=== PATIENT | female | born 1935 | race Caucasian/White ===

== ENCOUNTER 2017-08-10 00:39 | Day surgery (SDC) | payer BC, MEDICARE ==
[~2017-08-10] VITALS: Ht 154.9 cm; Wt 77.6 kg
[~2017-08-10 00:39] MED LIST: ACET500T68 PO; ALB17R INH; ALBU8.5H IH; ATOR10TA65 PO; ATOR20TA22 PO; BUPR1PAT9 TD; CHOL10005 PO; CHOL400C10 PO; FLAX100042 PO; FLUT1DIS29 IH; HYDR-2966 PO; LOSA50TA72 PO; MAGN250T34 PO; MAX75 PO; NAB500 PO; OMEG-36 PO; PER PO; POTA2.5T7 PO; VITAMINS
[2017-08-10] MEDS ORDERED: OPHTHALMIC PROCEDURE 1 OU PRN (10:30)
[2017-08-10] MEDS ORDERED: OPHTHALMIC PROCEDURE 2 OU PRN (10:30)
[2017-08-10] MEDS ORDERED: LIDOCAINE/SOD BICARB 8.4% SYR ID ONE (12:00)
[2017-08-10] MEDS ORDERED: NORMOSOL R SOLN(*) 1000 ML BAG 1,000 ML IV PRN (12:00)
[2017-08-10] MEDS ORDERED: MIDAZOLAM 2 MG/2 ML VIAL IVP ONE (12:30)
[2017-08-10 12:34] VITALS: BP 179/125
[2017-08-10] MEDS: OPHTHALMIC PROCEDURE 2 OU PRN ×2 (12:43→12:54)
[2017-08-10 14:47] VITALS: BP 170/92
--- NOTE | 2017-08-10 18:07 | FOSTER LEFT EYE CATARACT ---
EVENT DATE: August 10, 2017 SURGEON: Gilberto Arroyo MD ANESTHESIOLOGIST: Eulogio Zamora MD ANESTHESIA: MAC PREOPERATIVE DIAGNOSIS Cataract, left eye. POSTOPERATIVE DIAGNOSIS Cataract, left eye. PROCEDURE Phacoemulsification of cataractous lens with implantation of an intraocular lens , left eye. DESCRIPTION OF PROCEDURE The risks and benefits and alternatives were carefully discussed with the patient, and preoperative consent was obtained. The patient was brought to the operating room, after receiving topical anesthetic. The patient was prepped and draped using sterile technique in the usual manner. A stab incision was made and the chamber was inflated with preservative-free lidocaine. DuoVisc was injected to inflate the chamber. A 2.2 mm blade was used to enter the anterior chamber. Utrata forceps were used to tear a circular capsulorrhexis. BSS was used to hydrodissect the nucleus. Phaco tip was introduced and the nucleus was chopped into four quadrants. Each quadrant was removed. The I/A tip was used to remove the cortex. The bag was inflated with ProVisc. The intraocular lens was injected into the capsular bag. The I/A tip was used to remove the ProVisc. The wound was found to be watertight. Vigamox, Nevanac and Maxitrol ointment were placed in the patient's eye. The patient's eye was patched and the patient was taken to the recovery room in stable condition. The patient was examined in the recovery room and found to be stable, prior to release from the hospital. SHANA
== END 2017-08-10 15:07 | disposition home or self-care (01) ==
LOC: OR 00:39
PROVIDERS: ATTEND Ophthalmology
DX: H25.811 Combined forms of age-related cataract, right eye (principal); H25.812 Combined forms of age-related cataract, left eye; H43.813 Vitreous degeneration, bilateral
CPT/HCPCS: 66984; V2632

== ENCOUNTER 2017-09-21 01:40 | Day surgery (SDC) | payer BC ==
[~2017-09-21] VITALS: Ht 160 cm; Wt 76.7 kg
[2017-09-21] MEDS ORDERED: OPHTHALMIC PROCEDURE 1 OD PRN (12:20)
[2017-09-21] MEDS ORDERED: OPHTHALMIC PROCEDURE 2 OD PRN ×2 (12:20)
[2017-09-21 13:00] VITALS: BP 161/87
[2017-09-21] MEDS ORDERED: MIDAZOLAM 2 MG/2 ML VIAL IVP ONE (13:00)
[2017-09-21] MEDS ORDERED: NORMOSOL R SOLN(*) 1000 ML BAG 1,000 ML IV PRN (13:00)
[2017-09-21] MEDS ORDERED: LIDOCAINE/SOD BICARB 8.4% SYR ID ONE (13:00)
[2017-09-21] MEDS ORDERED: ALBUTEROL/IPRATROPIUM 3 ML NEB ONE (13:54)
[2017-09-21 15:18] VITALS: BP 154/96
--- NOTE | 2017-09-21 19:17 | FOSTER RIGHT EYE CATARACT ---
EVENT DATE: September 21, 2017 SURGEON: Gilberto Arroyo MD ANESTHESIOLOGIST: None. ANESTHESIA: Topical. PREOPERATIVE DIAGNOSIS Cataract, right eye. POSTOPERATIVE DIAGNOSIS Cataract, right eye. PROCEDURE Phacoemulsification of cataractous lens with implantation of an intraocular lens , right eye. DESCRIPTION OF PROCEDURE The risks and benefits and alternatives were carefully discussed with the patient, and preoperative consent was obtained. The patient was brought to the operating room after receiving topical anesthetic. The patient was prepped and draped using sterile technique in the usual manner. A stab incision was made, and the chamber was inflated with preservative-free lidocaine. DuoVisc was injected to inflate the chamber. A 2.2 mm blade was used to enter the anterior chamber. Utrata forceps were used to tear a circular capsulorrhexis. BSS was used to hydrodissect the nucleus. Phaco tip was introduced, and the nucleus was chopped into four quadrants. Each quadrant was removed. The I/A tip was used to remove the cortex. The bag was inflated with ProVisc. The intraocular lens was injected into the capsular bag. The I/A tip was used to remove the ProVisc. The wound was found to be watertight. Vigamox, Nevanac, and Maxitrol ointment were placed in the patient's eye. The patient's eye was patched, and the patient was taken to the recovery room in stable condition. The patient was examined in the recovery room and found to be stable prior to release from the hospital. SHANA
== END 2017-09-21 15:35 | disposition home or self-care (01) ==
LOC: OR 01:40
PROVIDERS: ATTEND Ophthalmology
DX: H25.11 Age-related nuclear cataract, right eye (principal)
CPT/HCPCS: 66984; 94640; 94667; J7620; V2632

== ENCOUNTER 2018-03-15 14:23 | Emergency (ER) | payer BC ==
--- NOTE | 2018-03-15 14:29 | ER Report ---
History and Physical Time Seen By MD: 14:29 Hx. of Stated Complaint: LEFT NARE EPITAXIS FOR 45 MINUTES. HPI/ROS CHIEF COMPLAINT: Nosebleed HISTORY OF PRESENT ILLNESS: This is a 2-year-old female who presents to the emergency department for a nosebleed. Patient states that over the last several days she's had 2 nosebleeds, this is the 3rd nosebleed today. Patient states that this was been going on for probably 45 minutes. Patient denies taking anticoagulation, no aspirins. Patient is being treated for hypertension takes other jrmc-nmc-[id number] vitamins. Patient denies having a history of any bleeding disorders. Patient denies chest pain or shortness of breath, no headaches, no visual changes. REVIEW OF SYSTEMS: Constitutional: No fever, no chills. Eyes: No discharge. ENT: As above. Cardiovascular: No chest pain, no palpitations. Respiratory: No cough, no shortness of breath. Gastrointestinal: No abdominal pain, no vomiting. Genitourinary: No hematuria. Musculoskeletal: No back pain. Skin: No rashes. Neurological: No headache. Allergies: Coded Allergies: NSAIDS (Non-Steroidal Anti-Inflamma (Verified Allergy, Intermediate, ASTHMA PROBLEMS, 01/27/08) Sulfa (Sulfonamide Antibiotics) (Verified Allergy, Mild, HIVES, 01/27/08) Home Meds Reported Medications Magnesium Oxide (MAGNESIUM) 250 Mg Tablet, 250 MG PO DAILY 08/01/17 [place]-3 Fatty Acids/Fish Oil (OMEGA 3 FISH OIL SOFTGEL) 1 Each Capsule.dr, 1 EACH PO QDAY 08/01/17 Cholecalciferol (Vitamin D3) (VITAMIN D3) 1,000 Unit Tablet, 2000 UNIT PO DAILY, TAB 08/01/17 Acetaminophen (TYLENOL EXTRA STRENGTH) 500 Mg Tablet, 1-2 TAB PO PRN, TAB 08/01/17 Albuterol Sulfate 90 Mcg/Act (PROAIR HFA 90 MCG/ACT) 8.5 Gm Hfa.aer.ad, 2 PUFF IH Q4H PRN for SHORTNESS OF BREATH, INHALER 02/29/16 Losartan Potassium (LOSARTAN POTASSIUM) 50 Mg Tablet, 50 MG PO QDAY 02/29/16 Hydrochlorothiazide (HYDROCHLOROTHIAZIDE) 25 Mg Tablet, 1 TAB PO QDAY, TAB 02/29/16 Atorvastatin Calcium (ATORVASTATIN CALCIUM) 10 Mg Tablet, 1 TAB PO QDAY, TAB 02/29/16 Fluticasone/Salmeterol (ADVAIR 500-50 DISKUS) 1 Each Disk.w.dev, 1 EACH IH BID 02/29/16 Past Medical/Surgical History The patient has a past medical and surgical history of heart murmur, bronchitis, asthma, pneumonia, COPD, right shoulder discomfort, arthritis, cataracts, wears glasses, hard of hearing, deaf in right ear, vertigo, hysterectomy, clubfoot, toe surgery. Hx Smoking: Yes (1 PPD FOR 60 YRS) Smoking Status: Current: Every Day Smoker Hx Substance Use Disorder: No Hx Alcohol Use: Yes Constitutional Vital Sign - Last 24 Hours 03/15/18 03/15/18 14:26 15:33 Temp 98.0 Pulse 120 82 Resp 18 18 B/P (MAP) 201/95 130/83 (99) Pulse Ox 90 95 O2 Delivery Room Air Room Air Physical Exam General Appearance: The patient is alert, has no immediate need for airway protection and no signs of toxicity. Eyes: Pupils equal and round no pallor or injection. ENT, Mouth: Mucous membranes are moist. Actively bleeding from the left nares, several clots with bright red blood. Right naris clear and patent. Respiratory: There are no retractions, lungs are clear to auscultation. Cardiovascular: Regular rate and rhythm. Gastrointestinal: Abdomen is soft and non tender, no masses, bowel sounds normal. Neurological: Alert and oriented 4. Moving all extremities. Following all commands. No focal neuro deficits. Skin: Warm and dry, no rashes. Musculoskeletal: Neck is supple non tender. Extremities are nontender, nonswollen and have full range of motion. DIFFERENTIAL DIAGNOSIS: After history and physical exam differential diagnosis was considered for nosebleed. Medical Decision Making Data Points Result Diagram: 03/15/18 1456 03/15/18 1456 Laboratory Hematology Test 03/15/18 14:56 Red Blood Count 5.25 M/uL (4.17-5.56) Mean Corpuscular Volume 93.3 fL (80.0-96.0) Mean Corpuscular Hemoglobin 33.4 pg (26.0-33.0) Mean Corpuscular Hemoglobin Concent 35.8 g/dL (32.0-36.0) Red Cell Distribution Width 13.6 % (11.5-14.5) Mean Platelet Volume 6.8 fL (7.2-11.1) Neutrophils (%) (Auto) 55.4 % (39.4-72.5) Lymphocytes (%) (Auto) 30.7 % (17.6-49.6) Monocytes (%) (Auto) 10.1 % (4.1-12.4) Eosinophils (%) (Auto) 2.9 % (0.4-6.7) Basophils (%) (Auto) 0.9 % (0.3-1.4) Nucleated RBC Relative Count (auto) 0.1 /100WBC Neutrophils # (Auto) 4.4 K/uL (2.0-7.4) Lymphocytes # (Auto) 2.5 K/uL (1.3-3.6) Monocytes # (Auto) 0.8 K/uL (0.3-1.0) Eosinophils # (Auto) 0.2 K/uL (0.0-0.5) Basophils # (Auto) 0.1 K/uL (0.0-0.1) Nucleated RBC Absolute Count (auto) 0.01 K/uL Sodium Level 132 mmol/L (137-145) Potassium Level 3.8 mmol/L (3.5-5.0) Chloride Level 93 mmol/L (98-107) Carbon Dioxide Level 28 mmol/L (22-31) Blood Urea Nitrogen 16 mg/dl (7-18) Creatinine 0.60 mg/dl (0.52-1.04) Glomerular Filtration Rate Calc > 60.0 Random Glucose 115 mg/dl (75-110) Calcium Level 9.3 mg/dl (8.4-10.2) Chemistry Test 03/15/18 14:56 White Blood Count 8.0 k/uL (4.5-11.0) Red Blood Count 5.25 M/uL (4.17-5.56) Hemoglobin 17.5 g/dL (12.0-16.0) Hematocrit 48.9 % (34.0-47.0) Mean Corpuscular Volume 93.3 fL (80.0-96.0) Mean Corpuscular Hemoglobin 33.4 pg (26.0-33.0) Mean Corpuscular Hemoglobin Concent 35.8 g/dL (32.0-36.0) Red Cell Distribution Width 13.6 % (11.5-14.5) Platelet Count 338 K/uL (150-450) Mean Platelet Volume 6.8 fL (7.2-11.1) Neutrophils (%) (Auto) 55.4 % (39.4-72.5) Lymphocytes (%) (Auto) 30.7 % (17.6-49.6) Monocytes (%) (Auto) 10.1 % (4.1-12.4) Eosinophils (%) (Auto) 2.9 % (0.4-6.7) Basophils (%) (Auto) 0.9 % (0.3-1.4) Nucleated RBC Relative Count (auto) 0.1 /100WBC Neutrophils # (Auto) 4.4 K/uL (2.0-7.4) Lymphocytes # (Auto) 2.5 K/uL (1.3-3.6) Monocytes # (Auto) 0.8 K/uL (0.3-1.0) Eosinophils # (Auto) 0.2 K/uL (0.0-0.5) Basophils # (Auto) 0.1 K/uL (0.0-0.1) Nucleated RBC Absolute Count (auto) 0.01 K/uL Glomerular Filtration Rate Calc > 60.0 Calcium Level 9.3 mg/dl (8.4-10.2) ED Course/Re-evaluation ED Course The patient was admitted to room. History of physical were obtained. Differential diagnoses were considered. A CBC, BMP were obtained. The patient's nosebleed was controlled with Afrin. The patient had no recurrent bleeding during her ER visit. H&H showing 17.5 ,48.9, chemistry unremarkable. I did instruct the patient to apply a small film of Vaseline or bacitracin to the inside of the nostrils, try humidification in her home and avoid bearing down and increased stress that would subsequently cause a nosebleed. The patient expressed understanding and was discharged home. I also instructed the patient t o follow up with Dr. Kerr should these nosebleeds continue. Patient will return to ER for any other concerns or worsening symptoms. Procedure: Epistaxis control. The anterior epistaxis was identified, Afrin spray was used. The patient was treated with vasoconstriction. Following the procedure the patient was re- examined and the bleeding was well controlled. The patient tolerated the pro cedure well. The procedure was performed by myself. Decision to Disposition Date: Mar 15, 2018 Decision to Disposition Time: 15:22 Depart Departure Latest Vital Signs Vital Signs Date Time Temp Pulse Resp B/P (MAP) Pulse Ox O2 Delivery O2 Flow Rate FiO2 03/15/18 15:33 82 18 130/83 (99) 95 Room Air 03/15/18 14:26 98.0 Impression: Primary Impression: Epistaxis Condition: Improved Disposition: HOME OR SELF-CARE Referrals: MARILYN ZAPATA (PCP) KORI KERR JR, MD Patient Instructions: Nosebleed (ED) Additional Instructions: If the nosebleeds are a recurrent problem, I recommend following up with Dr. Amy de la torre. Nose and throat specialist. I also recommend trying a barrier in the nostril such as bacitracin or Vaseline. Try humidification at home. Drink plenty of water. Get plenty of rest. Return to the emergency department for any other concerns or worsening symptoms. LUCERO PERRY-BC Mar 15, 2018 14:29
[2018-03-15] MEDS ORDERED: OXYMETAZOLINE SPRAY 15 ML BTL ENA SCH (14:30)
[2018-03-15 15:07] LABS: PLATELET COUNT, AUTOMATED 338 K/uL (150-450)
[2018-03-15 15:33] VITALS: BP 130/83
== END 2018-03-15 15:32 | disposition home or self-care (01) ==
LOC: ER 14:27
DX: R04.0 Epistaxis (principal)
CPT/HCPCS: 36415; 82310; 82374; 82435; 82565; 82947; 84132; 84295; 84520; 85025; 99283